=== PATIENT | male | born 2000 | race Caucasian/White ===

== ENCOUNTER 2021-08-07 12:56 | Emergency (ER) | payer SELFPAY ==
--- NOTE | 2021-08-07 13:03 | ED.URI ---
HPI - URI/Sore Throat General Chief Complaint: Upper Respiratory Infection Stated Complaint: Sore Throat Time Seen by Provider: 08/07/21 13:04 Source: patient and RN notes reviewed History of Present Illness HPI Narrative: Patient is a 21-year-old male who presents the urgent care with complaints of sore throat, bilateral otalgia and postnasal drainage. Patient states that his symptoms started last night and he is taking DayQuil and ibuprofen. Patient denies of any known exposures to Covid or strep. Patient has not been Covid vaccinated. Denies any fever, chills, nausea or vomiting. Denies of cough or shortness of breath. No other acute complaints. No acute distress noted. Patient read the plan of care. Some parts of this dictation were generated by voice recognition software and may contain typographical and/or grammatical inaccuracies. Related Data Home Medications Medication Instructions Recorded Confirmed No Home Medications 08/07/21 08/07/21 Allergies Allergy/AdvReac Type Severity Reaction Status Date / Time No Known Allergies Allergy Verified 08/07/21 12:58 Review of Systems Review of Systems: CONSTITUTIONAL: Denies fever, chills, or sweats. EYES: Denies visual changes, redness, or discharge. ENT: Denies rhinorrhea, congestion. Reports of sore throat, postnasal drainage and bilateral otalgia CARDIOVASCULAR: Denies chest pain, palpitations, or edema. RESPIRATORY: Denies cough or dyspnea. GASTROINTESTINAL: Denies abdominal pain, nausea, vomiting, or diarrhea. GENITOURINARY: Denies dysuria or hematuria. SKIN: Denies rash or itching. MUSCULOSKELETAL: Denies back pain, joint pain, or myalgia. NEUROLOGIC: Denies headache, numbness, or weakness. All other systems reviewed are negative, except as documented in HPI. PMFSH Comments At the time of my signature, I reviewed and agree with the nursing past medical, surgical, social, and family history. There is no relevant family history pertinent to the patient complaint. Exam Narrative: GENERAL: This is a well-nourished, well-developed patient, in no apparent distress. HEAD: normocephalic, atraumatic. EYES: PERRL. Sclera clear/white. Vision is grossly intact. EARS: External ears normal, auditory canals clear and without drainage, mild fluid noted 9 bilateral TMs without otitis. TMs normal without perforation. Hearing grossly intact. NOSE: External nose normal with no obvious nasal discharge, nares without redness, no rhinorrhea. THROAT: Mucous membranes moist, posterior pharynx clear. Mild erythema noted posterior oropharynx with mild postnasal drainage. No exudate or ulceration NECK: Neck supple, non-tender without lymphadenopathy CARDIOVASCULAR: Regular rate and rhythm without murmurs, gallops, or rubs. RESPIRATORY: Clear to auscultation. Breath sounds equal bilaterally. No wheezes, rales, or rhonchi. SKIN: warm, intact with no suspicious lesions or rash, good texture and turgor. NEURO: awake, alert, and oriented to person, place and time. There were no obvious focal neurologic abnormalities. EXTREMITIES: No clubbing, cyanosis, or edema. Course Course Level of Care: Express Care Visit Vital Signs Vital signs: Vital Signs Temperature 99.6 F 08/07/21 13:05 Pulse Rate 82 08/07/21 13:05 Respiratory Rate 16 08/07/21 13:05 Blood Pressure 120/68 08/07/21 13:05 Pulse Oximetry 98 08/07/21 13:05 Temperature 99.6 F 08/07/21 13:10 Pulse Rate 82 08/07/21 13:10 Respiratory Rate 16 08/07/21 13:10 Blood Pressure 120/68 08/07/21 13:10 Pulse Oximetry 98 08/07/21 13:10 Reviewed MDM - URI/Sore Throat MDM Narrative Medical decision making narrative: Advised patient to use Benadryl prior to bedtime in conjunction with Flonase. Take Zyrtec or Claritin daily. Use Tylenol/ibuprofen as needed for fever or pain. We will culture the strep and call if medication/antibiotics are necessary based on culture results. The culture will take appr
[2021-08-07 13:05] VITALS: BP 120/68; PULSE 82; RESP 16; TEMP 37.6; O2SAT 98
[2021-08-07 13:10] VITALS: BP 120/68; PULSE 82; RESP 16; TEMP 37.6; O2SAT 98
== END 2021-08-07 13:28 | disposition home or self-care (01) ==
PROVIDERS: Emergency Provider Nurse Practitioner Family
DX: J02.9 Acute pharyngitis, unspecified (principal)
CPT/HCPCS: 87081; 99202; G0463

== ENCOUNTER 2025-04-18 16:24 | Emergency (ER) | payer OTHER, SELFPAY ==
[2025-04-18 16:30] VITALS: BP 144/89; PULSE 55; RESP 16; TEMP 36.4; O2SAT 100
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
== END 2025-04-18 17:02 | disposition home or self-care (01) ==
PROVIDERS: Emergency Provider Nurse Practitioner
DX: S09.91XA Unspecified injury of ear, initial encounter (principal); W50.0XXA Accidental hit or strike by another person, initial encounter
CPT/HCPCS: 99213; G0463